=== PATIENT | male | born 1965 | race Caucasian/White ===

== ENCOUNTER 2021-04-06 09:25 | Outpatient (REF) | payer OTHER, SELFPAY ==
[2021-04-06 11:16] LABS: MANUAL DIFF FLAG NO
[2021-04-06 11:26] LABS: Basophils Absolute Auto 0.1 X10*3/uL (0.0-0.2); Basophils Percent Auto 0.6 % (0-2); Eosinophils Absolute Auto 0.2 X10*3/uL (0.0-0.4); Eosinophils Percent Auto 1.9 % (0-4); Hematocrit 42.2 % (42-52); Hemoglobin 14.1 g/dl (14.0-18.0); Imm Gran Abs Auto 0.06 X10*3/uL (0.00-0.03); Imm Gran Pct Auto 0.7 % (0.0-0.4); Lymphocytes Absolute Auto 1.7 X10*3/uL (1.2-4.9); Lymphocytes Percent Auto 18.7 % (20-40); Mean Corpuscular HGB Conc 33.4 g/dl (31.0-36.0); Mean Corpuscular Hemoglobin 33.3 pg (27.0-33.0); Mean Corpuscular Volume 99.8 fL (80-98); Mean Platelet Volume 10.1 fL (9.4-12.4); Monocytes Absolute Auto 0.7 X10*3/uL (0.1-1.2); Monocytes Percent Auto 8.2 % (2-11); Neutrophils Absolute Auto 6.3 X10*3/uL (2.0-8.3); Neutrophils Percent Auto 69.9 % (45-73); Platelet Count 170 X10*3/uL (160-400); Red Blood Count 4.23 X10*6/uL (4.60-5.80); Red Cell Distribution Width 13.5 % (11.0-16.0)
[2021-04-06 11:55] LABS: Alanine Aminotransferase 26 U/L (0-40); Albumin Level 4.2 g/dL (3.5-5.0); Alkaline Phosphatase 103 U/L (39-117); Anion Gap 15 (12-20); Aspartate Amino Transferase 17 U/L (5-37); Bilirubin Total 0.4 mg/dL (0.0-1.0); Blood Urea Nitrogen 13 mg/dL (9-16); Calcium 9.4 mg/dL (8.4-10.2); Carbon Dioxide 20 mmol/L (22-29); Chloride 111 mmol/L (96-108); Cholesterol 136 mg/dL; Estimated Glomerular Filt Rate > 60; Glucose Random 91 mg/dL (60-115); HDL Cholesterol 49 mg/dL; LDL Cholesterol Calculated 61 mg/dl; Potassium 4.5 mmol/L (3.3-5.1); Sodium 141 mmol/L (135-145); Triglycerides 130 mg/dL
[2021-04-06 12:03] LABS: Thyroid Stimulating Hormone 1.15 uIU/mL (0.32-4.0)
== END 2021-04-06 09:26 | disposition home or self-care (01) ==
LOC: HO.HMGCLDS 09:25
PROVIDERS: PCP Internal Medicine; Visit Provider Internal Medicine
DX: Z00.01 Encounter for general adult medical examination with abnormal findings (principal); E78.00 Pure hypercholesterolemia, unspecified; H54.42A5 Blindness left eye category 5, normal vision right eye; I10 Essential (primary) hypertension; K40.90 Unilateral inguinal hernia, without obstruction or gangrene, not specified as recurrent
CPT/HCPCS: 36415; 80053; 80061; 84443; 85025

== ENCOUNTER → 2021-04-24 15:20 | Outpatient (BNVA) | payer OTHER, SELFPAY | PROVIDERS: PCP Internal Medicine; Visit Provider Surgery | DX: K40.90 Unilateral inguinal hernia, without obstruction or gangrene, not specified as recurrent (principal); F17.210 Nicotine dependence, cigarettes, uncomplicated | CPT/HCPCS: 99202 ==

== ENCOUNTER 2021-05-02 08:22 | Day surgery (SDC) | payer OTHER, SELFPAY ==
[2021-05-02] VITALS (7 sets, daily range): BP systolic 120–156; BP diastolic 65–84; PULSE 47–56; RESP 16; TEMP 36.1–36.2; O2SAT 93–100; BMI 29.8
[2021-05-02] MEDS: Lactated Ringers 1,000 ML 100 ML IVCONT (09:16)
--- NOTE | 2021-05-02 09:35 | P.CONAN_ITS ---
HPI - Anesthesia Eval Consult details Narrative: 56 yo male patient for Left inguinal hernia with mesh PMFSH Active Problems Active Problems: All Active Problems (Updated 04/24/21 @ 15:55 by Jean-Pierre roblero MD) Left inguinal hernia (Acute) History of heart disease (Acute) Hypertension (Acute) Past Medical History Medical History Coronary artery disease Cough History of heart disease Hypertension Left inguinal hernia Smoker Family History Family history of problems with anesthesia: No Surgical History Surgical History History of brain surgery History of quadruple bypass History of right inguinal hernia repair (1999) History of skin graft History of Problems with Anesthesia: No Social History Social History (Updated 05/02/21 @ 10:19 by Jacquelyn Prado) Alcohol intake: current Alcohol intake frequency: holidays/special occasions only Patient Tobacco Use Status: Current everyday Tobacco user Tobacco use type: Cigarette Smoked in Last 30 Days: Yes Use of substances other than those prescribed or required for medical reasons: Yes Substance Use Type: Marijuana Last Used Substance Other:: Yesterday Are you DNR?: No Advance Directives: No Advance Directives Information Provided: Yes Recently lost weight without trying: No Nutrition Risks: No Nutritional Risk Poor oral hygiene: No Meds Allergies Allergy/AdvReac Type Severity Reaction Status Date / Time labetalol Allergy Unknown Verified 05/02/21 08:51 Home Medications Medication Instructions Recorded Confirmed Last Taken Type aspirin 81 mg tablet,delayed 81 mg PO DAILY 04/24/21 05/02/21 07:00 History release metoprolol succinate 25 mg 25 mg PO DAILY 04/24/21 05/02/21 07:00 History tablet,extended release 24 hr metoprolol succinate 50 mg 50 mg PO DAILY 04/24/21 05/02/21 07:00 History tablet,extended release 24 hr sildenafil 50 mg tablet 50 mg PO DAILY 04/24/21 05/02/21 07:00 History fexofenadine 30 mg tablet mg 05/02/21 05/02/21 07:00 History Exam Exam Date and Time: May 02, 2021 0935 Height,Weight and Vital Signs: Height 5 ft 6 in Weight 83.915 kg Last Vital Signs Temp 97.0 F 05/02/21 09:05 Pulse 56 05/02/21 09:05 Resp 16 05/02/21 09:05 BP 156/84 H 05/02/21 09:05 Pulse Ox 96 05/02/21 09:05 Airway Mallampati Class: II TM Dist: >3cm Neck ROM: Full Loose/Missing/Broken Teeth: Yes Heart: RRR Lungs: Wheezes R posterior Assessment and Plan Assessment Anesthesia Assessment: Anesthesia Plan Discussed (For albuterol nebulizer treatment) and Chart Reviewed Final Anesthetic Review Family History of Problems with Anesthesia: No History of Problems with Anesthesia: No NPO: Yes ASA Class: III Final Preanesthetic Review: No Changes in Pt Med Stat, Meds/Allgs Chart Reviewed, Consent Obtained/Reviewed and Anes Risks/Benef Reviewed Patient Risk: Intermediate Procedure Risk: Low Assessment/Block/Sedation in SS: Assess/Block/Sedation-SS Anesthetic Plan Anesthetic Plan: GA Disposition: Standard PACU
--- NOTE | 2021-05-02 09:53 | MHC.SHP ---
Pre-Procedural Eval Section A Date of Service: 05/02/21 Section B Chief Complaint: Left Inguinal hernia Allergies: Allergies Allergy/AdvReac Type Severity Reaction Status Date / Time labetalol Allergy Unknown Verified 05/02/21 08:51 Plan I have reviewed the history and physical and performed a pertinent physical examination on my patient. No changes have occurred unless specified.
--- NOTE | 2021-05-02 10:07 | PC.NURSE ---
called for pre-op resp treatment
[2021-05-02] MEDS: Albuterol Sulfate (0.083%) 2.5 MG/3 ML VIAL.NEB INHALE (10:15)
--- NOTE | 2021-05-02 10:17 | PC.NURSE ---
patient receiving resp treatment
--- NOTE | 2021-05-02 10:20 | PC.NURSE ---
patient receiving resp treatment
--- NOTE | 2021-05-02 11:24 | P.OP_ITS ---
Operative Note Operative Note Date of Service: 05/02/21 Narrative: Preop diagnosis: Left inguinal hernia, chronically incarcerated Postop diagnosis: Left inguinal hernia, chronically incarcerated with long loop of sigmoid Procedure: Repair of a left inguinal hernia with mesh, with reduction of chronically incarcerated long loop of sigmoid Surgeon: Jean-Pierre Ruff MD assistant food service director: GUILLERMO Lipscombbodeau Patient is a 56-year-old male with the left inguinal mass, only partially reducible. This was a large mass and was consistent with a hernia. He understood technique of repair of this large hernia with mesh. He was aware of the risks, benefits, and alternatives He was brought to the operating room and placed supine the table under general anesthesia via laryngeal mask airway. A surgical time-out was done. The left groin was prepped and draped in the usual sterile fashion. I made a short incision on the skin along an imaginary line from the anterior superior iliac spine to the pubic ramus using a blade number 15. This was carried down through the full-thickness of skin and subcutaneous fat with electrocautery until we reviewed to visualize the external oblique aponeurosis. I bluntly dissected the external oblique aponeurosis until I was able to clearly define the external ring. I made an incision on the external oblique aponeurosis along its fibers using blade 15. And this was extended with an open tip pair of scissors to connect with the external ring. At this point therefore the inguinal canal was entered. I applied graspers on the edges of the external oblique aponeurosis. I bluntly dissected the underside of the external oblique aponeurosis to create space for the mesh. The large hernia was seen. I proceeded to bluntly dissect around this large hernia along with the rest of the cord contents using the index finger until was able to pass [place] drain around this. This Prem drain was used for traction. With a [place] drain placed a proceeded to then gently dissect the large hernia sac off of the rest of the cord contents. However in view of the size of the sac, we were unable to do so in view of poor visualization. I would therefore open the the sac. I examined the content. He was able to see a long loop of sigmoid colon. This was therefore an a chronically incarcerated hernia with a long loop of sigmoid. Proceeded to gently pull the sigmoid off of the rest of the hernia sac. Do some lysis of adhesions to achieve this. Once I divided these adherent adhesions tethering the loop of sigmoid to the sac, as able to gently reduce this to the internal ring. With the hernia contents completely reduced, I was able therefore clearly examine the cord contents. The vas deferens was seen along with its accompanying vessels. I had incised the sac earlier and most of this was reduced to the internal ring as well. The internal ring defect was good sized so I used an extra-large plug. There was excision to the internal ring and was secured with Prolene 2 sutures to the shelving edge of the inguinal and latera lly, and the internal oblique superiorly and medially using its inner leaves. I then positioned a keyhole mesh the floor of the canal. The tails of the mesh were passed around the cord at the level of the internal ring and were secured together with Prolene 2 sutures. I flattened the mesh on the floor. I secured this with Prolene 2 sutures to the shelving edge of the inguinal and laterally, the internal oblique superiorly and medially as well as the pubic ramus inferomedially. I then copies irrigated. I observed for hemostasis. Once hemostasis was ensured, I proceeded to then close the external oblique aponeurosis with a running Dexon 2-0 stitch to re-create the internal ring. The subcutaneous layer was reapposed with Dexon 3-0 interrupted sutures. Skin closure was achieved with Dexon 4-0 subcuticular running stitch. Steri-Strips and dressings were applied. The incision was infiltrated with Marcaine 0.5% for postop analgesia and the procedure was completed The patient tolerated procedure well. There were no complication noted. Initial fine counts of sponges and instruments were correct. Estimated blood loss about 10 cc The patient was extubated without difficulty and transferred to the recovery room with stable vital signs.
--- NOTE | 2021-05-02 11:31 | PM.OP ---
Brief Operative Note Date of Service: 05/02/21 Pre-op diagnosis: Chronically incarcerated left inguinal hernia Post-op diagnosis: other (Left inguinal hernia with chronically incarcerated loop of sigmoid colon) Procedure: Repair of left hernia with mesh, with reduction of chronically incarcerated sigmoid colon Surgeon: Jean-Pierre Ruff MD Anesthesia: GLMA Was an Automatic Operator used for this Procedure?: No Estimated blood loss (mL): 10 Pathology: none sent Condition: stable Disposition: PACU
[2021-05-02] MEDS: Acetaminophen 325 MG TABLET 650 MG PO (11:44)
[2021-05-02] MEDS: oxyCODONE HCl Immed Release 5 MG TABLET 10 MG PO (11:45)
== END 2021-05-02 12:50 | disposition home or self-care (01) ==
PROVIDERS: PCP Internal Medicine; Visit Provider Surgery
PROC: (CPT 49507; principal; 2021-05-02 10:20)
DX: K40.30 Unilateral inguinal hernia, with obstruction, without gangrene, not specified as recurrent (principal); I25.10 Atherosclerotic heart disease of native coronary artery without angina pectoris; I10 Essential (primary) hypertension; F17.210 Nicotine dependence, cigarettes, uncomplicated; Z95.1 Presence of aortocoronary bypass graft; R05 Cough; F12.90 Cannabis use, unspecified, uncomplicated; Z79.82 Long term (current) use of aspirin; Z79.899 Other long term (current) drug therapy; Z88.8 Allergy status to other drugs, medicaments and biological substances
CPT/HCPCS: 49507; 94640; C1781; J0690; J1100; J2250; J2405; J3010

== ENCOUNTER → 2021-05-30 08:43 | Outpatient (BNVA) | payer OTHER, SELFPAY | PROVIDERS: PCP Internal Medicine; Visit Provider Internal Medicine | DX: I25.10 Atherosclerotic heart disease of native coronary artery without angina pectoris (principal); F17.200 Nicotine dependence, unspecified, uncomplicated; Z95.1 Presence of aortocoronary bypass graft | CPT/HCPCS: 93005; 99202 ==

== ENCOUNTER → 2021-07-13 09:50 | Outpatient (REF) | payer OTHER, SELFPAY ==
--- NOTE | 2021-07-13 10:23 | CA_ITS ---
Transthoracic Echocardiogram Patient (Last, First, Middle): Cory Otero, Gender: Male Date of : 1965 Age: 56 Procedure Date: 07/13/2021 Procedure Type: Transthoracic Echocardiogram Location: OP Height: 167.64 cm Weight: 81.65 kg BSA: 1.91 m2 Heart Rate: bpm BP: 136 / 78 mmHg Environmental Services Supervisor: CHERYLE Referring MD: Jesus Wheeler MD Warehouse Stock Clerk: Dell Hines MD Symptoms: I25.10 - Atherosclerotic heart disease of [place] coronary... Study Quality: Fair ECG Rhythm: Sinus Conclusions: - 1. Normal LV systolic function with impaired relaxation filling pattern 2. Normal cardiac valvular Doppler 3. Normal RV systolic pressure 4. No pericardial effusion Findings Left Ventricle The visually estimated ejection fraction is between 55-60%. Spectral Doppler is indicative of an impaired relaxation filling pattern. E/E prime ratio is <8, consistent with normal filling pressures. Evidence suggests grade I (mild) diastolic dysfunction. Peak global longitudinal endocardial strain is 16.6%, marginally reduced Right Ventricle Normal right ventricular cavity size and systolic function. Atria The left atrium is normal in size. Interatrial shunt cannot be excluded. The right atrium is normal in size. Aortic Valve Normal aortic valve structure and function. There is no aortic valve stenosis. There is no aortic valve regurgitation. Mitral Valve Normal mitral valve structure and function. There is trace mitral valve regurgitation. There is no mitral valve stenosis. Pulmonic Valve The pulmonic valve was not well visualized. Tricuspid Valve Likely normal tricuspid valve structure and function. There is trace tricuspid valve regurgitation. The right ventricular systolic pressure is normal. The right ventricular systolic pressure is 24 mmHg. Normal right atrial pressure. There is no evidence of pulmonary hypertension. Great Vessels All visible segments of the aorta are normal in size. The pulmonary artery was not well visualized. Venous The inferior vena cava is normal in size and collapses greater than 50% with inspiration. Pericardium/Pleural There is no evidence of pericardial effusion. Prior Study Comparison No prior study available for comparison. Measurements 2D Linear Measurements IVSd: 1.00 0.6-0.9/0.6-1.0 cm LVIDd: 4.24 3.9-5.3/4.2-5.9 cm LVIDd Index: 2.22 2.4-3.2/2.2-3.1 cm/m2 LVIDs: 2.79 2.0-3.6 cm LVPWd: 0.79 0.7-1.1 cm Ao Root: 3.50 2.1-3.5 cm LA Diam: 3.70 2.7-3.8/3.0-4.0 cm LAIDs Index: 1.94 1.5-2.3 cm/m2 LV Mass: 148.98 67-162/88-224 g LV Mass Index: 78.00 43-95/49-115 g/m2 LVOT Diam: 2.00 3.0+(-)1.3 cm 2D Systolic Function EF 4C: 58.90 >55% EF 2C: 51.50 >55% EF BiP: 55.60 >55% Mitral Valve MV Pk E: 0.64 MV PK A: 0.77 MV Decel Time: 205.00 E/A: 0.80 E'Lateral: 7.51 E'Medial: 5.55 E/E' Med: 11.50 E/E' Lat: 8.50 PHT: 60.00 MVA PHT: 3.67 Decel [place]: 3.10 Aortic Valve AoV Pk Pelon: 0.91 AoV Pk Grad: 3.00 LVOT LVOT Pk Pelon: 0.82 LVOT Mn Pelon: 0.54 LVOT VTI: 0.20 LVOT Pk Grad: 3.00 LVOT Mn Grad: 1.00 LVOT Diam: 2.00 LVOT Area: 3.14 Diastolic Function MV Pk E: 0.64 MV Pk A: 0.77 E/A: 0.80 E'Medial: 5.55 E/E' Med: 11.50 E' Laterial: 7.51 E/E' Lat: 8.50 Right Ventricle TAPSE (mm): 1.69 Tricuspid Valve TR Pk Pelon: 2.29 TR Pk Grad: 21.00 RA Press: 3.00 RVSP: 24.00 Great Vessels Aorta Ao Root-2D: 3.50 2.0-3.7 cm Ao Asc: 3.40 2.1-3.4 cm Updated in Other Vendor System with Status of Final Dell Hines MD electronically signed on 07/15/2021 9:08:26 AM with status of Final
== END ==
LOC: HO.CARD 09:50
PROVIDERS: Visit Provider Internal Medicine
DX: I25.10 Atherosclerotic heart disease of native coronary artery without angina pectoris (principal); Z95.1 Presence of aortocoronary bypass graft
CPT/HCPCS: 93306

== ENCOUNTER 2022-02-13 10:41 | Outpatient (REF) | payer OTHER, SELFPAY ==
[2022-02-13 12:24] LABS: Alanine Aminotransferase 25 U/L (0-40); Albumin Level 4.5 g/dL (3.5-5.0); Alkaline Phosphatase 112 U/L (39-117); Anion Gap 11 (12-20); Aspartate Amino Transferase 18 U/L (5-37); Bilirubin Total 0.6 mg/dL (0.0-1.0); Blood Urea Nitrogen 16 mg/dL (9-16); Carbon Dioxide 24 mmol/L (22-29); Chloride 107 mmol/L (96-108); Estimated Glomerular Filt Rate > 60; Glucose Random 100 mg/dL (60-115); Potassium 4.2 mmol/L (3.3-5.1); Sodium 138 mmol/L (135-145); Total Protein 6.8 g/dL (6.5-8.0)
== END 2022-02-13 10:42 | disposition home or self-care (01) ==
LOC: HO.LAB 10:41
PROVIDERS: PCP Internal Medicine; Visit Provider Internal Medicine
DX: I10 Essential (primary) hypertension (principal); J44.9 Chronic obstructive pulmonary disease, unspecified; Z72.0 Tobacco use; Z95.1 Presence of aortocoronary bypass graft
CPT/HCPCS: 36415; 80053